=== PATIENT | female | born 2000 | race Caucasian/White ===

== ENCOUNTER → 2022-09-15 | Outpatient (CLI) | payer BC ==
--- NOTE | 2022-09-15 10:41 | US ---
EXAMINATION TYPE: US kidneys/renal and bladder DATE OF EXAM: 09/15/2022 COMPARISON: NONE CLINICAL HISTORY: R35.0 FREQ OF MICTURITION. frequent urination EXAM MEASUREMENTS: Right Kidney: 10.9 x 4.0 x 3.6 cm Left Kidney: 10.1 x 4.6 x 4.6 cm Right Kidney: No hydronephrosis or masses seen Left Kidney: No hydronephrosis or masses seen Bladder: wnl Bilateral Jets seen: Yes IMPRESSION: 1. No ultrasound abnormality renal ultrasound.
--- NOTE | 2022-09-15 10:43 | US ---
EXAMINATION TYPE: US pelvic complete DATE OF EXAM: 09/15/2022 COMPARISON: Pelvic ultrasound 09/15/2022 CLINICAL HISTORY: R35.0 FREQ OF MICTURITION. FREQUENT URINATION TECHNIQUE: Transabdominal (TA). Transabdominal sonographic images of the pelvis were acquired. EXAM MEASUREMENTS: Uterus: 7.6 x 2.4 x 3.9 cm Endometrial Stripe: .9 cm Right Ovary: 4.2 x 2.2 x 2.5 cm Left Ovary: 2.6 x 2.2 x 2.3 cm 1. Uterus: Anteverted wnl 2. Endometrium: wnl 3. Right Ovary: Simple Cystic area seen 2.7 x 2.0 x 1.8 cm. 4. Left Ovary: wnl 5. Bilateral Adnexa: wnl 6. Posterior cul-de-sac: wnl Urinary bladder is sonolucent. The posterior wall is normal. IMPRESSION: 1. Right ovarian cyst. Follow-up exam following the next normal menstrual period is recommended.
== END | disposition home or self-care (01) ==
LOC: RADUSWWP 09:49
PROVIDERS: ATTEND Pediatrics
DX: N83.201 Unspecified ovarian cyst, right side (principal); R35.0 Frequency of micturition
CPT/HCPCS: 76770; 76856